=== PATIENT | female | born 1950 | race Caucasian/White ===

== ENCOUNTER → 2023-06-04 15:19 | Outpatient (BNVA) | payer MEDICARE, SELFPAY | PROVIDERS: PCP Family Medicine Adult Medicine; Visit Provider Family Medicine Adult Medicine | DX: R63.4 Abnormal weight loss (principal); E03.9 Hypothyroidism, unspecified; R42 Dizziness and giddiness | CPT/HCPCS: 80053; 84443; 85025 ==

== ENCOUNTER → 2025-04-21 08:32 | Outpatient (BNVA) | payer BC, SELFPAY | PROVIDERS: PCP Family Medicine; Visit Provider Family Medicine | DX: E03.9 Hypothyroidism, unspecified (principal) | CPT/HCPCS: 80053; 80061; 84439; 84443 ==

== ENCOUNTER 2025-06-07 13:53 | Outpatient (CLI) | payer BC, SELFPAY ==
--- NOTE | 2025-06-07 14:00 | MM_ITS ---
WS: [id number] BILATERAL 3D TOMOSYNTHESIS DIGITAL DIAGNOSTIC MAMMOGRAPHY WITH CAD CLINICAL INFORMATION: L breast mass HISTORY: 2016 breast cancer. New LEFT breast lump. COMPARISON: 2016. TECHNIQUE: Bilateral CC, MLO, and ML views. FINDINGS: The breasts are composed of heterogeneous fibroglandular density, which can limit the detection of small underlying mass lesions. Dense ovoid nodule upper outer LEFT breast deep to the palpable marker with spiculated margins measuring 1.5 cm. This has a suspicious appearance. Ultrasound described below. Numerous punctate calcifications RIGHT breast similar to previous. ULTRASOUND BREAST LEFT TECHNIQUE: Ultrasound left breast focused area of concern. CLINICAL INFORMATION: L breast mass FINDINGS: Ultrasound LEFT breast at the 3 o'clock position 5 cm from the nipple in the area of patient concern. This corresponds to the mammographic findings. Heterogeneous hypoechoic suspicious appearing mass measuring 1.6 x 1.4 x 1.5 cm with irregular margins. This is in the area of prior lumpectomy. Recommend further evaluation with ultrasound-guided biopsy. MM/MM diag BI tomosynthesis [id number] IMPRESSION: DENSITY: The breasts are heterogeneously dense, which may obscure small masses. BI-RADS: 5 - Highly suggestive of Malignancy FOLLOW UP: US Guided Biopsy Recommended Recommend ultrasound-guided biopsy of the suspicious LEFT breast mass
== END 2025-06-07 13:54 | disposition home or self-care (01) ==
LOC: RAD 13:53
PROVIDERS: PCP Family Medicine; Visit Provider Family Medicine
DX: N64.4 Mastodynia (principal); R92.322 Mammographic fibroglandular density, left breast; N63.14 Unspecified lump in the right breast, lower inner quadrant; Z98.890 Other specified postprocedural states
CPT/HCPCS: 76642; 77062; G0279

== ENCOUNTER 2025-06-09 13:42 | Outpatient (CLI) | payer MEDICARE, SELFPAY ==
--- NOTE | 2025-06-09 14:45 | US_ITS ---
WS: [id number] ULTRASOUND-GUIDED LEFT BREAST BIOPSY ULTRASOUND GUIDED BIOPSY LEFT AXILLARY LYMPH NODE. HISTORY: BI-RADS 5 mass LEFT breast at 3:00. During initial scanning of the LEFT breast mass prior to the biopsy the LEFT axilla was imaged and abnormal lymph nodes were identified. These lymph nodes will be biopsied also. COMPARISON: 06/07/2025 Procedure, risks and complications are explained to the patient. Medications are reviewed. Consent is obtained. The mass in the LEFT breast is localized with ultrasound. Hypoechoic irregular mass localizes to 3:00, 5 cm from the nipple. Skin is cleansed with ChloraPrep and anesthetized with 1% buffered lidocaine. Small dermatome is made. Under sterile conditions mass is biopsied with a 14-gauge Achieve needle. Multiple core biopsies are performed. Material placed in formalin and sent to pathology for review. No complications encountered. Breast tissue marker ([employer] ultrasound enhanced ribbon): Single. Additional biopsy of a small cluster of lymph nodes in the axilla. This is an abnormal group of lymph nodes. At least 2 lymph nodes are identified. The cortex is thickened with displacement of the fatty hilum. Following sterile technique these lymph nodes are biopsied with an 18-gauge needle. Multiple cores are performed and placed in formalin. Patient left the radiology suite with no complications. Patient is instructed to return to [facility] or call with any concerns. US/[place] [id number] IMPRESSION: 1. Uncomplicated core needle biopsy LEFT breast mass at 3:00, 5 cm from the ni pple. PATHOLOGY: Invasive ductal carcinoma, nuclear grade 2. Please see the pathology report for further details. RECOMMENDATION: Follow-up with breast surgeon and oncology. 2. Uncomplicated core biopsy LEFT axillary lymphadenopathy. PATHOLOGY: Metastatic adenocarcinoma, moderately differentiated, consistent wit h breast primary. RECOMMENDATION: Follow-up with breast surgeon and oncology.
--- NOTE | 2025-06-09 15:49 | US_ITS ---
WS: [id number] ULTRASOUND-GUIDED LEFT BREAST BIOPSY ULTRASOUND GUIDED BIOPSY LEFT AXILLARY LYMPH NODE. HISTORY: BI-RADS 5 mass LEFT breast at 3:00. During initial scanning of the LEFT breast mass prior to the biopsy the LEFT axilla was imaged and abnormal lymph nodes were identified. These lymph nodes will be biopsied also. COMPARISON: 06/07/2025 Procedure, risks and complications are explained to the patient. Medications are reviewed. Consent is obtained. The mass in the LEFT breast is localized with ultrasound. Hypoechoic irregular mass localizes to 3:00, 5 cm from the nipple. Skin is cleansed with ChloraPrep and anesthetized with 1% buffered lidocaine. Small dermatome is made. Under sterile conditions mass is biopsied with a 14-gauge Achieve needle. Multiple core biopsies are performed. Material placed in formalin and sent to pathology for review. No complications encountered. Breast tissue marker ([employer] ultrasound enhanced ribbon): Single. Additional biopsy of a small cluster of lymph nodes in the axilla. This is an abnormal group of lymph nodes. At least 2 lymph nodes are identified. The cortex is thickened with displacement of the fatty hilum. Following sterile technique these lymph nodes are biopsied with an 18-gauge needle. Multiple cores are performed and placed in formalin. Patient left the radiology suite with no complications. Patient is instructed to return to [facility] or call with any concerns. US/US bx lymph breast/ax [id number] IMPRESSION: 1. Uncomplicated core needle biopsy LEFT breast mass at 3:00, 5 cm from the ni pple. PATHOLOGY: Invasive ductal carcinoma, nuclear grade 2. Please see the pathology report for further details. RECOMMENDATION: Follow-up with breast surgeon and oncology. 2. Uncomplicated core biopsy LEFT axillary lymphadenopathy. PATHOLOGY: Metastatic adenocarcinoma, moderately differentiated, consistent wit h breast primary. RECOMMENDATION: Follow-up with breast surgeon and oncology.
[2025-06-15 06:55] LABS: Breast Profile ER,PR,HER2,Ki-6 See Report
== END 2025-06-09 13:43 | disposition home or self-care (01) ==
LOC: RAD 13:44
PROVIDERS: PCP Family Medicine; Visit Provider Family Medicine
DX: C50.812 Malignant neoplasm of overlapping sites of left female breast (principal); C79.89 Secondary malignant neoplasm of other specified sites; R92.1 Mammographic calcification found on diagnostic imaging of breast
CPT/HCPCS: 19083; 38505; 76942; 88305; 88361; 88374

== ENCOUNTER 2025-06-14 00:52 | Emergency (ER) | payer MEDICARE, SELFPAY ==
[2025-06-14 00:55] VITALS: BP 186/82; PULSE 75; RESP 14; TEMP 36.6; O2SAT 96
--- OUTSIDE RECORDS SUMMARY | 2025-06-14 01:08 | XMS_ITS | Clinical Summary ---
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 Name Role Phone Unavailable Primary Care Provider Unavailabl e Social History Tobacco Use Types Packs/Day Years Used Date Smoking Tobacco: Never Assessed Comments Unknown Sex and Gender Information Value Date Recorded Sex Assigned at Not on file Legal Sex Female 11:55 AM EDT Gender Identity Not on file Sexual Orientation Not on file Plan of Treatment Health Maintenance Due Date Last Done Comments Pneumococcal Vaccine: 50+ Ye ars (1 of 2 - PCV) 12/19/1967 Influenza Vaccine (#1) 2025 Hepatitis B Vaccine Aged Out No longe r eligible based on patient's age to complete this topic Insurance [address] [place] [id number] [place] Adv ([id number])
--- OUTSIDE RECORDS SUMMARY | 2025-06-14 01:08 | XMS_ITS | Clinical Summary ---
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 30 Tablet 0 04/09/2020 Active levothyroxine 75 mcg tablet Take 75 mcg by mouth daily. 04/27/2015 Active estradioL (ESTRACE) 1 mg tablet Take 1 mg by mouth daily. 05/06/2015 Active predniSONE (DELTASONE) 20 mg tabletIndication s:Poison ana paula Take 3 tabs daily x 3 d, then 2 tabs daily x 3 d, then 1 tab daily x 3 d, then 1/2 tab daily x 4 d. 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 Gender Identity Not on file Sexual Orientation Not on file Last Filed Vital Signs Vital Sign Reading Time Taken Comments Blood Pressure 156/81 04/09/2020 2:25 PM CDT Pulse 94 05/06/2015 4:02 PM CDT Temperature 36.6 C (97.8 F) 04/09/2020 1:40 PM CDT Respiratory Rate 20 04/09/2020 2:25 PM CDT Oxygen Saturation - - Inhaled Oxygen Concentration - - Weight 70 kg (154 lb 6.4 oz) 04/09/2020 1:40 PM CDT Height 162.6 cm (5' 4 ) 04/09/2020 1:40 PM CDT Body Mass Index 26.5 04/09/2020 1:40 PM CDT Plan of Treatment Health Maintenance Due Date Last Done Comments DTAP/TDAP/TD VACCINES (1 - Tdap) 12/19/1967 PNEUMOCOCCAL VACCINE 50+ YEARS (1 of 1 - PCV) 12/18/18 99 ZOSTER VACCINE (1 of 2) 1998 OSTEOPOROSIS SCREENING 2013 RSV VACCINE (60+ or ) (1 - 1-dose 75+ series) 12/19/2023 INFLUENZA VACCINE (#1) 2025
--- OUTSIDE RECORDS SUMMARY | 2025-06-14 01:08 | XMS_ITS | Encounter Summary ---
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 Name Role Phone Unavailable Primary Care Provider Unavailabl e Reason for Referral * Consultation (Urgent) - Closed Specialty Diagnoses / Procedures Referred By Contac t Referred To Contact Nephrology Diagnoses Acute kidney failure, not otherwise specified (HCC) Chronic kidney disease, not otherwise specified Latoya Gasca FNP [address] [place] [address] Phone: tel: fax: Jay Perez MD [address] [address] Phone: tel: fax: Referral ID Status Reason Start Date Expiration Date V isits Requested Visits Authorized [id number] Closed Consult and Treat 03/08/2025 03/08/2026 1 1 Encounter Details Date Type Department Care Team (Latest Contact Info) Description 03/08/2025 Transcribe Orders [facility] [address] [phone] Latoya Gasca FNP [address] [place] [address] Acute kidney failure, not otherwise specified (HCC) (Primary Dx); Chronic kidney disease, not otherwise specified Social History Tobacco Use Types Packs/Day Years Used Date Smoking Tobacco: Never Assessed Comments Unknown Sex and Gender Information Value Date Recorded Sex Assigned at Not on file Legal Sex Female 11:55 AM EDT Gender Identity Not on file Sexual Orientation Not on file documented as of this encounter Plan of Treatment Scheduled Referrals Name Type Priority Associated Diagnoses Order Schedule Ambulatory referral to Nephrology Outpatient Referral Routine Acute kidney failure, not otherwise specified (HCC) Chronic kidney disease, not otherwise specified Expected: 03/08/2025, Expires: 03/08/2026 documented as of this encounter Visit Diagnoses Diagnosis Acute kidney failure, not otherwise specified (HCC)- Primary Chronic kidney disease, not otherwise specified documented in this encounter
--- OUTSIDE RECORDS SUMMARY | 2025-06-14 01:08 | XMS_ITS | Clinical Summary ---
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 04/27/2015 Active estradiol (ESTRACE) 1 mg tablet Take 1 mg by mouth daily. Active predniSONE (DELTASONE) 20 mg tabletIndication s:Poison ana paula Take 3 tabs daily x 3 d, then 2 tabs daily x 3 d, then 1 tab daily x 3 d, then 1/2 tab daily x 4 d. 20 Tablet 0 05/06/2015 Active hydrOXYzine HCL (ATARAX) 25 mg tablet Take 1 Tablet (25 mg) by mouth 3 times daily as needed for Itching. 30 Tablet 04/09/2020 Active Active Problems No known active problems Family History Medical History Relation Name Comments Cancer Mother Relation Name Status Comments Mother Social History Tobacco Use Types Packs/Day Years Used Date Smoking Tobacco: Never Smokeless Tobacco: Never Alcohol Use Standard Drinks/Week Comments No 0 (1 standard drink = 0.6 oz pur e alcohol) Comments No Sex and Gender Information Value Date Recorded Sex Assigned at Not on file Legal Sex Female 3:40 PM CDT Gender Identity Not on file Sexual Orientation Not on file Last Filed Vital Signs Vital Sign Reading Time Taken Comments Blood Pressure 156/81 04/09/2020 2:25 PM CDT Pulse 94 05/06/2015 4:02 PM CDT Temperature 36.6 C (97.8 F) 04/09/2020 1:40 PM CDT Respiratory Rate 20 04/09/2020 2:25 PM CDT Oxygen Saturation 96% 04/09/2020 2:25 PM CDT Inhaled Oxygen Concentration - - Weight 70 [...] 75+ series) 12/19/2023 INFLUENZA VACCINE (#1) 2025 Insurance MEDICARE PART A AND B [facility]
--- OUTSIDE RECORDS SUMMARY | 2025-06-14 01:09 | XMS_ITS | Data Portability ---
Author Organization [facility], Formerly [facility] Address [address] [place] [address] Assessment Encounter Date Assessment Date Assessment LastModified by Organization Details LastModified Time 08/26/2024 08/26/2024 Discussed labs today but patient declined. The patient is wanting to do a parasite cleanse with ivermectin. [email or web address] Not available 08/26/2024 09:55:13 Plan of Treatment Reminders Order Date Submit Date Provider Last Modified By Organization Details Last Modified Time Details Appointments None recorded. Lab CMP, serum or plasma 2024 025 [facility], [address] [place], [address], 5 18:23:52 TSH + free T4, serum 2024 025 [facility], [address] [place], [address], 5 16:50:15 T3, free, serum or plasma 2024 025 [facility], [address] [place], [address], 5 16:50:20 CMP, serum or plasma 2024 025 [facility], [address] [place], [address], 5 16:50:17 T3, reverse, serum [address] Clinical Lab, [address], [place], [address], 5 14:14:09 C-reactive protein, quantitati ve, serum or plasma 2024 025 [facility], [address], [place], [address], 5 16:50:16 estradiol, QN, serum or plasma 2024 025 [facility], [address], [place], [address], 5 12:49:53 testostero ne, total, serum 2024 025 [facility], [address], [place], [address], 5 16:50:19 thyroid peroxidase (tpo) Ab, serum 2024 [facility], [address], [place], [address], 5 12:49:52 vitamin D, 25-hydroxy , total, serum 2024 025 [facility], [address], [place], [address], 5 16:50:13 progestero ne, serum 2024 025 [facility], [address], [place], [address], 12:49:55 Referral narrow fabric calenderer referral - CALL WITH QUESTIONS/ CONCERNS. FAX:[phone] CHEY GUILLEN/CASE MANAGEMENT [address], [address] [place] [address], [address], 14:28:10 Procedures None recorded. Surgeries None recorded. Imaging electrocar diogram [address], [address] [place], [address], 10:09:00 Medication Orders clonidine HCl 0.1 mg tablet [address] [place] [address] Not available 16:31:33 estradiol 2 mg tablet [email or web address] [place] [address] Pharmacy [facility], [address] [place] [address], [address], 15:29:06 mupirocin 2 % topical ointment 2024 [facility], [address] [place] [address], [address], 08:59:18 ivermectin 3 mg tablet 2024 025 [email or web address] [facility], [address] [place] [address], [address], 5 15:31:07 levofloxac in 500 mg tablet 2024 025 [facility], [address] [place] [address], [address], 5 15:32:51 prednisone 20 mg tablet 2024 025 [facility], [address] [place] [address] [place], [address], 16:12:44 Patient TargetsNo targets recorded. 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 FAX:[phone] CHEY GUILLEN/CASE MANAGEMENT Referring Physician: Montana Gunter, Family Medicine, Encounter Date: 11/18/2024 Results Created Date Observation Date Name Description Value Unit Range Abnormal Flag Note LastModifiedBy Organization Detail LastModifiedTime 03/03/2003/04/2025 VITAM IN D TOTAL vitamin D total 43.9 NG/mL 14.7 - 68.3 Not Available [facility] Lab [address] [place], [address], 03/04/2025 16:50:13 03/03/2003/04/2025 TSH free T4 0.86 NG/mL 0.78 - 2.19 Not Available [facility] [address] [place], [address], 03/04/2025 16:50:15 03/03/2003/04/2025 TSH TSH 28.300 mIU/L 0.465 - 4.680 high Not Available [facility] [address] [place], [address], 03/04/2025 16:50:15 03/03/2003/0403/04/2025 CRP CRP 5.0 mg/L 0.0 - 10.0 Not Available [facility] [address] [place], [address], 03/04/2025 16:50:16 03/03/20 25 03/04/2025 COMPR EHENS SOLANGE METAB OLIC PANEL (CMP) albumin 4.2 g/dL 3.5 - 5.0 Not Available [facility] [address] [place], [address], 03/04/2025 16:54:17 03/03/2003/04/2025 COMPR EHENS SOLANGE METAB OLIC PANEL (CMP) chloride 104 mmol/ L 98 - 107 Not Available [facility] [address] [place], [address], 03/04/2025 16:54:17 03/03/20 25 03/04/2025 COMPR EHENS SOLANGE METAB OLIC PANEL (CMP) creatinine 2.41 mg/dL 0.52 - 1.04 high Not Available [facility] Lab [address] [place], [address], 03/04/2025 16:54:17 03/03/20 25 03/04/2025 COMPR EHENS SOLANGE METAB OLIC PANEL (CMP) eco2 27.0 mmol/ L 22.0 - 30.0 Not Available [facility] [address] [place], [address], 03/04/2025 16:54:17 03/03/2003/04/2025 COMPR EHENS SOLANGE METAB OLIC PANEL (CMP) glucose 91 mg/dL 74 - 106 Not Available [facility] [address] [place], [address], 03/04/2025 16:54:17 07/16/03/04/2025 COMPR EHENS SOLANGE METAB OLIC PANEL (CMP) potassium 4.00 mmol/ L 3.50 - 5.10 Not Available [facility] [address] [place], [address], 03/04/2025 16:54:17 03/03/20 25 03/04/2025 COMPR EHENS SOLANGE METAB OLIC PANEL (CMP) alkaline phos 81 U/L 38 - 126 Not Available [facility] [address] [place], [address], 03/04/2025 16:54:17 03/03/20 25 03/04/2025 COMPR EHENS SOLANGE METAB OLIC PANEL (CMP) sodium 132 mmol/ L 137 - 145 low Not Available [facility] [address] [place], [address], 03/04/2025 16:54:17 03/03/20 25 03/04/2025 COMPR EHENS SOLANGE METAB OLIC PANEL (CMP) total bilirubin 0.5 mg/dL 0.2 - 1.3 Not Available [facility] [address] [place], [address], 03/04/2025 16:54:17 03/03/20 25 03/04/2025 COMPR EHENS SOLANGE METAB OLIC PANEL (CMP) total protein 6.7 g/dL 6.3 - 8.2 Not Available [facility] [address] [place], [address], 03/04/2025 16:54:17 03/03/20 25 03/04/2025 COMPR EHENS SOLANGE METAB OLIC PANEL (CMP) ALT 24 U/L 0 - 35 Not Available [facility] [address] [place], [address], 03/04/2025 16:54:17 03/03/20 25 03/04/2025 COMPR EHENS SOLANGE METAB OLIC PANEL (CMP) BUN/urea 18 mg/dL 7 - 17 high Not Available [facility] [address] [place], [address], 03/04/2025 16:54:17 03/03/20 25 03/04/2025 COMPR EHENS SOLANGE METAB OLIC PANEL (CMP) eGFR 20 mL/mi n/1.7 3m2 >60 critical low CRITI TIMMY NOTE: Anyi dunn to Ursula Murillo ng @ 15:32 , . mge *eGFR Refer ence Value s Katina l: >60 mL/mi n/1.7 3m2 Abnor mal: < 60 mL/mi n/1.7 3m2 Not Available [facility] [address] [place], [address], 03/04/2025 16:54:17 03/03/20 25 03/04/2025 COMPR EHENS SOLANGE METAB OLIC PANEL (CMP) A/G ratio 1.6 (calc ) 1.0 - 2.5 Not Available [facility] [address] [place], [address], 03/04/2025 16:54:17 03/03/20 25 03/04/2025 COMPR EHENS SOLANGE METAB OLIC PANEL (CMP) globulin 2.6 g/dL_ (calc ) 1.9 - 3.7 Not Available [facility] [address] [place], [address], 03/04/2025 16:54:17 03/03/20 25 03/04/2025 COMPR EHENS SOLANGE METAB OLIC PANEL (CMP) calcium 9.5 mg/dL 8.4 - 10.2 Not Available [facility] [address] [place], [address], 03/04/2025 16:54:17 03/03/20 25 03/04/2025 COMPR EHENS SOLANGE METAB OLIC PANEL (CMP) AST 25 U/L 14 - 36 Not Available [facility] [address] [place], [address], 03/04/2025 16:54:17 03/03/20 25 03/04/2025 COMPR EHENS SOLANGE METAB OLIC PANEL (CMP) BUN/crea ratio 8 (calc ) 6 - 22 Not Available [facility] [address] [place], [address], 03/04/2025 16:54:17 03/03/20 25 03/04/2025 TESTO STERO NE testosterone 25 NG/dL 6 - 77 Not Available [facility] Lab [address] [place], [address], 03/04/2025 16:50:19 03/03/2003/04/2025 FREE T3 free T3 2.80 pg/L 2.77 - 5.27 Not Available [facility] [address] [place], [address], 03/04/2025 16:50:20 03/03/20 25 03/09/2025 THYRO ID PEROX IDASE ANTIB ELE thyroid peroxidase antibody 22 IU/mL <9-34 An eleva shaun Thyro id Perox idase Antib ele shoul d not be used alone to make the diagn osis of autoi mmune thyro id disea se. A resul t of <34 IU/mL does not defin itive ly rule out the possi bilit y of autoi mmune thyro id disea se. Not Available [facility] [address] [place], [address], 03/09/2025 12:49:52 03/03/20 25 03/09/2025 ESTRA DIOL estradiol 16 pg/mL Estra diol Refer ence Range Healt hy women Folli cular phase 12.4 - 233 Ovula tion phase 41.0 - 398 Lutea l phase 22.3 - 341 Postm enopa use <5 - 138 Healt hy pregn ant women 1st trime ster 154 - 3243 2nd trime ster 1561 - 26414 3rd trime ster 8525 - >3000 0 Not Available [facility] [address] [place], [address], 03/09/2025 12:49:53 03/03/20 25 03/09/2025 PROGE STERO NE progesterone 0.19 NG/mL Proge stero ne Refer ence Range Healt hy women Folli cular phase 0.057 - 0.893 Ovula tion phase 0.121 - 12.0 Lutea l phase 1.83 - 23.9 Postm enopa use <0.05 - 0.126 Healt hy pregn ant women 1st trime ster 11.0 - 44.3 2nd trime ster 25.4 - 83.3 3rd trime ster 58.7 - 214 Not Available [facility] [address] [place], [address], 03/09/2025 12:49:55 03/03/2003/09/2025 TRIIO PAUL FARIA SE - LC-MS /MS triiodothyro nine, reverse - lc-MS/MS 9 NG/dL 8-25 Test devel oped and its sam tical perfo rmanc e ezekiel cteri stics have been deter mined by [facility]. selene s [facility] [place]. It has not been clear ed or appro janice by the U.S. Food and Drug Admin istra tion. This assay has been valid ated pursu ant to the CLIA regul ation s and is used for clini timmy purpo ses. Test Perfo rmed By Veronika yung , CLIA [id number] [facility] [address] [facility] ,[place], [place], Jennifer Rocha MD PhD Not Available [facility] [address] [place], [address], 03/09/2025 12:49:56 03/08/20 25 03/08/2025 COMPR EHENS SOLANGE METAB OLIC PANEL (CMP) albumin 4.5 g/dL 3.5 - 5.0 Not Available [facility] [address] [place], [address], 03/08/2025 18:23:52 03/08/20 25 03/08/2025 COMPR EHENS SOLANGE METAB OLIC PANEL (CMP) chloride 104 mmol/ L 98 - 107 Not Available [facility] [address] [place], [address], 03/08/2025 18:23:52 03/08/20 25 03/08/2025 COMPR EHENS SOLANGE METAB OLIC PANEL (CMP) creatinine 0.91 mg/dL 0.52 - 1.04 Not Available [facility] [address] [place], [address], 03/08/2025 18:23:52 03/08/20 25 03/08/2025 COMPR EHENS SOLANGE METAB OLIC PANEL (CMP) eco2 27.0 mmol/ L 22.0 - 30.0 Not Available [facility] [address] [place], [address], 03/08/2025 18:23:52 03/08/20 25 03/08/2025 COMPR EHENS SOLANGE METAB OLIC PANEL (CMP) glucose 89 mg/dL 74 - 106 Not Available [facility] [address] [place], [address], 03/08/2025 18:23:52 03/08/20 25 03/08/2025 COMPR EHENS SOLANGE METAB OLIC PANEL (CMP) potassium 4.90 mmol/ L 3.50 - 5.10 Not Available [facility] [address] [place], [address], 03/08/2025 18:23:52 03/08/20 25 03/08/2025 COMPR EHENS SOLANGE METAB OLIC PANEL (CMP) alkaline phos 89 U/L 38 - 126 Not Available [facility] [address] [place], [address], 03/08/2025 18:23:52 03/08/20 25 03/08/2025 COMPR EHENS SOLANGE METAB OLIC PANEL (CMP) sodium 135 mmol/ L 137 - 145 low Not Available [facility] [address] [place], [address], 03/08/2025 18:23:52 03/08/20 25 03/08/2025 COMPR EHENS SOLANGE METAB OLIC PANEL (CMP) total bilirubin 0.6 mg/dL 0.2 - 1.3 Not Available [facility] [address] [place], [address], 03/08/2025 18:23:52 03/08/20 25 03/08/2025 COMPR EHENS SOLANGE METAB OLIC PANEL (CMP) total protein 7.1 g/dL 6.3 - 8.2 Not Available [facility] [address] [place], [address], 03/08/2025 18:23:52 03/08/20 25 03/08/2025 COMPR EHENS SOLANGE METAB OLIC PANEL (CMP) ALT 29 U/L 0 - 35 Not Available [facility] [address] [place], [address], 03/08/2025 18:23:52 03/08/20 25 03/08/2025 COMPR EHENS SOLANGE METAB OLIC PANEL (CMP) BUN/urea 24 mg/dL 7 - 17 high Not Available [facility] [address] [place], [address], 03/08/2025 18:23:52 03/08/20 25 03/08/2025 COMPR EHENS SOLANGE METAB OLIC PANEL (CMP) eGFR 65 mL/mi n/1.7 3m2 >60 *eGFR Refer ence Value s Katina l: >60 mL/mi n/1.7 3m2 Abnor mal: < 60 mL/mi n/1.7 3m2 Not Available [facility] [address] [place], [address], 03/08/2025 18:23:52 03/08/20 25 03/08/2025 COMPR EHENS SOLANGE METAB OLIC PANEL (CMP) A/G ratio 1.7 (calc ) 1.0 - 2.5 Not Available [facility] [address] [place], [address], 03/08/2025 18:23:52 03/08/20 25 03/08/2025 COMPR EHENS SOLANGE METAB OLIC PANEL (CMP) globulin 2.6 g/dL_ (calc ) 1.9 - 3.7 Not Available [facility] [address] [place], [address], 03/08/2025 18:23:52 03/08/20 25 03/08/2025 COMPR EHENS SOLANGE METAB OLIC PANEL (CMP) calcium 10.2 mg/dL 8.4 - 10.2 Not Available [facility] [address] [place], [address], 03/08/2025 18:23:52 03/08/20 25 03/08/2025 COMPR EHENS SOLANGE METAB OLIC PANEL (CMP) AST 29 U/L 14 - 36 Not Available [facility] [address] [place], [address], 03/08/2025 18:23:52 03/08/20 25 03/08/2025 COMPR EHENS SOLANGE METAB OLIC PANEL (CMP) BUN/crea ratio 26 (calc ) 6 - 22 high Not Available [facility] [address] [place], [address], 03/08/2025 18:23:52 05/31/20 elect rocar diogr am No observ ation record ed. [email or web address] [facility] [address] [place], [address], 05/31/2025 10:08:52 05/31/2005/31/2025 elect rocar diogr am No observ ation record ed. BARCODE [facility] [address] [place], [address], 05/31/2025 15:41:28 Result Notes None recorded. Problems Name Problem SNOMED Code Status Onset Date Resolution Date Notes Provider Name and Address Organization Details Recorded Time Herpes zoster 6092147 Completed 201410/03/2016 Created By: BRITTNEE RUCKER; Modified By: EDGAR OCTOBER; Category : DD; Examiner : Brittnee Rucker; Medicine Descript ion: HERPES ZOSTER INVOLVIN G CERVICAL DERMATOM E; Display in Medcin: NO; Display in ESB: NO; Confiden tiality Level: Level 1; Type: Lion RUCKER, TACOS [address], [address] , [facility] 7 15:30:19 Streptoc occal sore throat 87635396 Completed 201410/03/2016 Created By: BRITTNEE RUCKER; Modified By: STARLA CLAROS; Category : DD; Examiner : Brittnee Rucker; Medicine Descript ion: PHARYNGI TIS STREPTOC OCCUS, GROUP A: BETA HEMOLYTI C; Display in Medcin: NO; Display in ESB: YES; Confiden tiality Level: Level 1; Type: Lion RUCKER LOGGING SUPERVISOR [address], [address] , [facility] 7 15:30:14 Contact dermatit is due to plants, except food Completed 201410/03/2016 Created By: BRITTNEE RUCKER; Modified By: EDGAR OCTOBER; Category : DD; Examiner : Brittnee Rucker; Medicine Descript ion: CONTACT DERMATIT IS DUE TO PLANTS; Display in Medcin: NO; Display in ESB: NO; Confiden tiality Level: Level 1; Type: Diagnosi s BRITTNEE RUCKER NP [address], [address] , [facility] 7 15:30:31 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 Created By: BRITTNEE RUCKER; Modified By: EDGAR OCTOBER; Category : DD; Examiner : Brittnee Rucker; Medicine Descript ion: HYPOTHYR OIDISM; Display in Medcin: NO; Display in ESB: NO; Confiden tiality Level: Level 1; Type: Diagnosi s Not Available Counts include 234 beds at the [facility] 6 04:47:25 Diarrhea [id number] Completed 201410/03/2016 Created By: BRITTNEE RUCKER; Modified By: STARLA CLAROS; Category : DD; Examiner : Brittnee Rucker; Medicine Descript ion: diarrhea ; Display in Medcin: NO; Display in ESB: YES; Confiden tiality Level: Level 1; Type: Diagnosi s BRITTNEE RUCKER NP [address], [address] , [facility] 7 15:30:27 Elevated blood-pr essure reading without diagnosi s of hyperten adelaida 884706423 Completed 201411/09/2020 Created By: BRITTNEE RUCKER; Modified By: BRITTNEE RUCKER; Category : DD; Examiner : Brittnee Rucker; Medicine Descript ion: Blood Pressure Isolated Elevated ; Display in Medcin: YES; Display in ESB: YES; Confiden tiality Level: Level 1; Type: Diagnosi s BRITTNEE RUCKER NP [address], [address] , [facility] 1 14:46:04 Superfic ial foreign body 954923115 Completed 201510/03/2016 Created By: BRITTNEE RUCKER; Modified By: BRENDAN HAIR; Category : DD; Examiner : Brittnee Rucker; Medicine Descript ion: SUPERFIC IAL FOREIGN BODY EAR; Display in Medcin: YES; Display in ESB: YES; Confiden tiality Level: Level 1; Type: Lion s BRITTNEE RUCKER NP [address], [address] , [facility] 7 15:30:16 Impacted cerumen 54081026 Completed 201510/03/2016 Created By: BRITTNEE RUCKER; Modified By: BRITTNEE RUCKER; Category : DD; Examiner : Brittnee Rucker; Medicine Descript ion: CERUMEN IMPACTIO N; Display in Medcin: YES; Display in ESB: YES; Confiden tiality Level: Level 1; Type: Ulicessanti s BRITTNEE RUCKER NP [address], [address] [place] [address] , [facility] 7 15:30:37 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 053694005 Completed 201610/03/2016 MAICOL IRENE NP [address], [address] [place] [address] , [facility] 2 11:29:47 Hyperlip idemia 50043412 Active 2016 BRITTNEE RUCKER NP [address], [address] [place] [address] , [facility] 7 11:57:32 Menopaus al flushing 385381144 Completed 201705/05/2019 Sagrario Martinez LPN [facility], [facility] 9 10:58:37 History of multiple allergie s 926998672 Active 2018 BRITTNEE RUCKER NP [address], [address] , [facility] 9 11:32:04 Allergic reaction 761525950 Completed 201909/02/2020 [facility] 1 11:29:13 [facility] hyperten adelaida 32835972 Active 2020 BRITTNEE RUCKER NP [address], [address] , [facility] 1 14:45:59 Malignan t melanoma 941300691 Active 2021 Mole on leg 03/06/22 BRITTNEE RUCKER NP [address], [address] , [facility] 2 11:13:50 Problem Notes None recorded. Procedures Surgical History Date Name Laterality Status Provider Name and Address Organization Details Recorded Time 10/24/19 22 venipuncture completed Anahy Cosme [facility] 10/23/2021 10:26:42 04/25/20 21 venipuncture completed [place] Marsh [facility] 04/25/2021 11:06:49 09/02/19 21 venipuncture completed [facility] 09/02/2020 11:26:58 08/03/20 20 venipuncture completed Jena [facility] 08/03/2020 10:38:05 02/01/20 20 venipuncture completed Lisa Medrano [facility] 01/29/2020 08:47:39 10/26/19 20 venipuncture completed Elliotttheathere Aries [facility] 10/26/2019 15:22:49 09/01/19 19 venipuncture completed Sandra Bowen [facility] 09/01/2018 13:12:56 02/12/20 18 venipuncture completed Elliottalvarezterry CarmenAries [facility] 02/11/2018 09:41:09 12/10/19 18 venipuncture completed [facility] 12/09/2017 09:31:42 08/15/20 17 venipuncture completed Sagrario Martinez LPN [facility] 08/15/2017 10:42:39 02/12/20 17 venipuncture completed Sagrario Martinez LPN [facility] 02/11/2017 10:48:08 Tonsillectomy completed [facility] 10/03/2016 09:36:37 Hysterectomy completed [facility] 10/03/2016 09:36:42 Appendectomy completed [facility] 10/03/2016 09:36:48 Imaging Results None recorded. Procedure Notes None recorded. Medical Equipment None Reported. Allergies Allergen ID Allergen Name Allergen Category Reaction Reaction Severity Criticality Documentation Date Start Date Code Code System Note Provider Name and Address Organization Details Recorded Time 98884 Product containin g penicilli n (product) medicatio n rash Not available Not available 07/22/20162014 49880 8001 SNOMED React ion: Rash, Urtic aria (hive s); Comme nt: Last Edite d: 07-29 10:32 :44; Not Available [facility] 6 03:39:27 36260 clindamyc in Not available diarrhea rash severe severe Not available 10/03/2016 2582 RxNorm BRITTNEE RUCKER NP [address], [address] [place] [address] 7 10:01:20 45187 doxycycli ne Not available Not available Not available Not available 04/23/2024 3640 RxNorm Annie [facility] 4 12:15:11 01725 ampicilli n medicatio n hives Not available Not available 05/31/2025 733 RxNorm Prasanna IRBY PNP-PC, CORPORATE LEGAL SECRETARY-C, [facility] [address], [address], [place] [facility] 09:29:06 64795 penicilli n V Not available Not available Not available Not available 06/09/2025 7984 RxNorm Not Available ariela - External Data Service - prod 16:49:28 Medications Name Sig Start Date Stop Date Status Note LastModified by Organization Details LastModified Time ivermectin 3 mg tablet Take 9 tablets every day by oral route for 5 days. 11/18 completed Not Available Not Available Not Available promethazin e-DM 6.25 mg-15 mg/5 mL oral syrup TAKE 5 ML BY MOUTH EVERY 4 HOURS NEEDED 04/15 completed Not Available Not Available Not Available clonidine HCl 0.1 mg tablet Take 1 tablet by oral route. 2024 active Not Available Not Available Not Avai lable prednisone 10 mg tablet TAKE 4 TABLETS BY MOUTH ONCE DAILY FOR 3 DAYS THEN TAKE 3 TABS ONCE DAILY FOR 3 DAYS THEN 2 TABS ONCE DAILY FOR 3 DAYS THEN 1 TAB ONCE DAILY FOR 3 DAYS THEN 1/2 (ONE-HALF ) TAB ONCE DAILY FOR 3 DAYS THEN STOP 10/28 completed Not Available Not Available Not Available doxycycline hyclate 100 mg capsule Take 1 capsule twice a day by oral route for 10 days. 04/23 completed Not Available Not Available Not Available albuterol sulfate 2.5 mg/3 mL (0.083 %) solution for nebulizatio n Inhale 3 mL every 4-6 hours by nebulizat ion route as needed. 04/15 completed Not Available Not Available Not Available azithromyci n 250 mg tablet TAKE 2 TABLETS BY MOUTH ON DAY 1, AND THEN TAKE 1 TABLET BY MOUTH ONCE A DAY ON DAY 2 THROUGH DAY 5 11/18 completed Not Available Not Available Not Available hydrocodone 5 mg-acetamin ophen 325 mg tablet 02/11 completed Not Available Not Available Not Available ondansetron HCl 8 mg tablet 02/11 completed Not Available Not Available Not Available lisinopril 20 mg tablet TAKE 1 TABLET BY MOUTH ONCE DAILY 03/03 completed Not Available Not Available Not Available ondansetron HCl 4 mg tablet 02/11 completed Not Available Not Available Not Available prednisone 20 mg tablet TAKE 1 TABLET BY MOUTH ONCE DAILY FOR 5 DAYS 11/18 completed Not Available Not Available Not Available phentermine 15 mg capsule TAKE 1 CAPSULE BY MOUTH EVERY OTHER DAY. MUST ADMINISTE R 2 HOURS AFTER BREAKFAST . 09/02 completed Not Available Not Available Not Available clindamycin HCl 150 mg capsule 02/11 completed Not Available Not Available Not Available sulfamethox azole 800 mg-trimetho prim 160 mg tablet Take 1 tablet every 12 hours by oral route for 7 days. 08/26 completed Not Available Not Available Not Available triamcinolo ne acetonide 0.1 % topical cream APPLY A THIN LAYER TO THE AFFECTED AREA(S) BY TOPICAL ROUTE 2 TIMES PER DAY 09/01 completed Not Available Not Available Not Available Lipitor 20 mg tablet Take 1 tablet every day by oral route. 08/16 completed Not Available Not Available Not Available Depo-Medrol 80 mg/mL suspension for injection Take 80 mg by injection route. 04/11 completed Not Available Not Available Not Available levothyroxi ne 88 mcg tablet Take 1 tablet by mouth once daily 2024 active Not Available Not Available Not Avai lable estradiol 1 mg tablet Take 1 tablet every day by oral route as directed. 08/20 completed Not Available Not Available Not Available Lipitor 40 mg tablet Take 1 tablet every day by oral route. 08/16 completed Not Available Not Available Not Available Euthyrox 75 mcg tablet TAKE 1 TABLET BY MOUTH ONCE DAILY FOR 90 DAYS 08/03 completed Not Available Not Available Not Available meclizine 25 mg tablet Take 1 tablet 3 times a day by oral route. 04/11 completed Not Available Not Available Not Available diazepam 2 mg tablet TAKE 1-2 TABLETS BY MOUTH ONE HOUR PRIOR TO DENTAL VISIT 10/23 completed Not Available Not Available Not Available betamethaso ne dipropionat e 0.05 % topical cream 02/11 completed Not Available Not Available Not Available cranberry fruit 400 mg capsule OTC 01/31 completed Not Available Not Available Not Available estradiol 2 mg tablet Take 1 tablet every day by oral route. 2024 active Not Available Not Available Not Avai lable hydroxyzine HCl 25 mg tablet TAKE 1 TABLET BY MOUTH THREE TIMES DAILY NEEDED FOR ITCHING 08/03 completed Not Available Not Available Not Available mupirocin 2 % topical ointment APPLY A SMALL AMOUNT TO THE AFFECTED AREA BY TOPICAL ROUTE 3 TIMES PER DAY 2024 active Not Available Not Available Not Avai lable estradiol 0.5 mg tablet TAKE 1 2 (ONE HALF) TABLET BY MOUTH ONCE DAILY. 08/03 completed Not Available Not Available Not Available levalbutero l 1.25 mg/3 mL solution for nebulizatio n USE 1 VIAL IN NEBULIZER EVERY 6 HOURS NEEDED 04/15 completed Not Available Not Available Not Available dexamethaso ne sodium phosphate 4 mg/mL injection solution Inject 4 mg by injection route. 04/11 completed Not Available Not Available Not Available levofloxaci n 500 mg tablet TAKE 1 TABLET BY MOUTH EVERY 24 HOURS FOR 10 DAYS 11/18 completed Not Available Not Available Not Available methylpredn isolone 4 mg tablets in a dose pack TAPER 6 1 DIRECTED 03/12 completed Not Available Not Available Not Available betamethaso ne dipropionat e 0.05 % topical ointment APPLY A THIN LAYER TO THE AFFECTED AREA(S) BY TOPICAL ROUTE ONCE DAILY 08/03 completed Not Available Not Available Not Available hydroxyzine HCl 10 mg tablet TAKE 1 TABLET BY MOUTH EVERY 6 HOURS NEEDED FOR ITCHING 04/11 completed Not Available Not Available Not Available lisinopril 2.5 mg tablet TAKE 1 TABLET BY MOUTH ONCE DAILY 08/20 completed Not Available Not Available Not Available doxycycline hyclate 100 mg tablet TAKE 1 TABLET BY MOUTH TWICE DAILY FOR 7 DAYS 03/12 completed Not Available Not Available Not Available loratadine 10 mg tablet TAKE 1 TABLET BY MOUTH ONCE DAILY 04/15 completed Not Available Not Available Not Available neomycin-po lymyxin-hyd rocort 3.5 mg-10,000 unit/mL-1 % ear drops,susp 02/11 completed Not Available Not Available Not Available omega-3 acid ethyl esters 1 gram capsule TAKE TWO CAPSULES BY MOUTH TWICE DAILY 08/07 completed Not Available Not Available Not Available fenofibrate 160 mg tablet Take 1 tablet every day by oral route. 12/09 completed Not Available Not Available Not Available Vitamin C OTC by oral route one time a day. 03/12 completed Not Available Not Available Not Available estradiol 0.01 mcg tablet. Take by oral route one time a day. 02/11 completed Not Available Not Available Not Available garlic OTC by oral route one time a day. 03/12 completed Not Available Not Available Not Available B Complex-Vit cain B12 by oral route one time a day. 08/07 completed Not Available Not Available Not Available calcium-vit cain D-vitamin K OTC one time a day by oral route. 03/12 completed Not Available Not Available Not Available multivitami n OTC 10/28 completed Not Available Not Available Not Available Solu-Medrol (PF) 125 mg/2 mL solution for injection Take 125 mg by injection route. 09/01 completed [id number] Not Available Not Available Not Available levothyroxi ne 75 mcg capsule Take 1 capsule every day by oral route. 02/11 completed Not Available Not Available Not Available EpiPen 2-Loc 0.3 mg/0.3 mL injection, auto-inject or as needed for anaphylax is 08/07 completed Not Available Not Available Not Available Vascepa 1 gram capsule Take 2 capsules twice a day by oral route. 09/01 completed Not Available Not Available Not Available Vitals Date Recorded Body height Body mass index (BMI) Body weight Body temperature Heart rate Oxygen saturation Oxygen saturation in Arterial blood by Pulse oximetry Respiratory rate Systolic And Diastolic Provider Name and Address Organization Details Last Updated DateTime 5 162.56 cm 24.8 kg/m2 78471.0 5 g 98.5 [degF] 87 /min 97 % 97 % 18 /min 150/88 mm[Hg] Lovely RODGERS - [facility] 5 09:37:16 Date Recorded Body height Body mass index (BMI) Body weight Body temperature Heart rate Oxygen saturation Oxygen saturation in Arterial blood by Pulse oximetry Respiratory rate Systolic And Diastolic Provider Name and Address Organization Details Last Updated DateTime 5 162.56 cm 25.6 kg/m2 78676.0 1 g 98.2 [degF] 96 /min 97 % 97 % 18 /min 148/88 mm[Hg] Lovely Mena [facility] 5 15:33:37 Date Recorded Body height Body mass index (BMI) Body weight Body temperature Respiratory rate Oxygen saturation Oxygen saturation in Arterial blood by Pulse oximetry Heart rate Systolic And Diastolic Provider Name and Address Organization Details Last Updated DateTime 5 162.56 cm 26.5 kg/m2 98763.3 g 98.7 [degF] 20 /min 98 % 98 % 83 /min 162/90 mm[Hg] Ene Ku [facility] 5 14:22:51 Date Recorded Body height Body mass index (BMI) Body weight Body temperature Heart rate Oxygen saturation Oxygen saturation in Arterial blood by Pulse oximetry Respiratory rate Systolic And Diastolic Systolic And Diastolic Provider Name and Address Organization Details Last Updated DateTime 5 162.56 cm 25.7 kg/m2 27433.4 1 g 97.4 [degF] 85 /min 98 % 98 % 18 /min 192/96 mm[Hg] 204/106 mm[Hg] Prasanna IRBY PNP-PC, CORPORATE LEGAL SECRETARY-C, [facility] [address], [address] [place] [address] 5 10:16:44 Social History Question Answer Notes LastModified by Organization Details LastModified Time Tobacco Smoking Status Never Smoker Lorraine Clark [facility] 10/03/2016 09:34:15 Do You Have An Advance Directive? No Information not available 02/11/2017 Do You Wear A Helmet When Biking? Yes Information not available 03/12/2022 Are You Blind Or Do You Have Difficulty Seeing? No Information not available 02/11/2017 What Is Your Level Of Caffeine Consumption? Occasional [email or web address] Information not available 10/03/2016 How Much Tobacco Do You Chew? None Information not available 02/11/2017 Commercial Sex Work No Information not available 02/11/2017 In The 14 Days Before Symptom Onset, Have You Had Close Contact With A Laboratory-confi rmed COVID-19 While That Case Was Ill? No Information not available 10/26/2019 In The 14 Days Before Symptom Onset, Have You Had Close Contact With A Person Who Is Under Investigation For COVID-19 While That Person Was Ill? No Information not available 10/26/2019 Have You Been To An Area Known To Be High Risk For COVID-19? No Information not available 10/26/2019 Are You Deaf Or Do You Have Serious Difficulty Hearing? Yes Stapeotomy Bilateral Ears Information not available 02/11/2017 What Type Of Diet Are You Following? VEGETARIAN Information not available 02/11/2017 Which Illicit Or Recreational Drugs Have You Used? None Information not available 02/11/2017 Have You Processed Blood Or Body Fluids From An Ebola Virus Disease Patient Without Appropriate PPE? No Information not available 03/12/2022 Education 8 [email or web address] Information not available 10/03/2016 What Is The Highest Grade Or Level Of School You Have Completed Or The Highest Degree You Have Received? [id number] Information not available 03/12/2022 Are There Any Guns Present In Your Home? No Information not available 02/11/2017 Hard Of Hearing Or Deaf In One Or Both Ears? Yes Information not available 02/11/2017 High Number Of Sexual Partners No Information not available 02/11/2017 History Of Inconsistent/no Condom Use No Information not available 02/11/2017 Single Or Multi-level Home/work? Multi Level Home Information not available 02/11/2017 How Many Years Have You Used Illicit Or Recreational Drugs? 0 Information not available 03/16/2020 International Travel None Information not available 02/11/2017 Legally Blind In One Or Both Eyes? No Information not available 02/11/2017 Live Alone Or With Others? With Others Information not available 02/11/2017 In The Past 6 Months Have You Fallen No Information not available 02/11/2017 Medication List Reconciled Yes Information not available 05/05/2019 What Number (0-10) Best Describes How, During The Past Week, Has Interfered With Your General Activity? 0 Information not available 02/11/2017 What Number (0-10) Best Describes How, During The Past Week, Pain Has Interfered With Your Enjoyment In The Past Week 0 Information not available 02/11/2017 What Number (0-10) Best Describes Your Pain On Average In The Past Week 0 Information not available 02/11/2017 Total PEG Score 0 Informati on not available 02/11/2017 Most Recent Dental Visit 08/09/2021 Information not available 03/12/2022 Sexual Orientation Straight Or Heterosexual Information not available 02/11/2018 Gender Identity Female Informati on not available 02/11/2018 Eye Exam 12/17/2017 Information not available 02/11/2018 Do You Feel Safe Yes Informa tion not available 11/09/2020 Marital Status [email or web address] Informatio n not available 10/03/2016 What Was The Date Of Your Most Recent Tobacco Screening? 03/03/2025 [email or web address] Information not available 03/03/2025 Mother With HIV? No Informat ion not available 02/11/2017 What Is Your Relationship Status? Information not available 02/11/2017 Do You Use Your Seat Belt Or Car Seat Routinely? Yes Information not available 10/23/2021 Seat Belts Used Routinely Yes Information not available 02/11/2017 Are You Sexually Active? Yes Information not available 08/07/2019 Sexual Partner Has HIV? No Information not available 02/11/2017 Sexual Partner Uses IV Drugs? No Information not available 02/11/2017 Smoke Alarm In Home Yes Information not available 02/11/2017 How Much Tobacco Do You Smoke? No [email or web address] Information not available 10/03/2016 General Stress Level Low [email or web address] Information not available 10/03/2016 Do You Use Sunscreen Routinely? Yes Information not available 02/11/2017 How Many Years Have You Smoked Tobacco? 0 Information not available 08/03/2020 Have You Used IV Drugs? No Information not available 02/11/2017 Do You Have Difficulty Walking Or Climbing Stairs? No Information not available 02/11/2017 Sex: Female Functional Status Question Answer Note LastModified by Organizat ion Details LastModified Time Do you or have you ever used smokeless tobacco? Never used smokeless tobacco Information not available 05/05/2019 Are you currently employed? No Information not available 02/11/2017 Do you have transportation difficulties? No Information not available 02/11/2017 Are you able to care for yourself independently? Yes Information not available 02/11/2017 Do you have difficulty dressing, bathing, grooming, or toileting? No Information not available 02/11/2017 Do you or have you ever used e-cigarettes or vape? Never used electronic cigarettes Information not available 05/05/2019 What is your exercise level? Moderate [email or web address] Information not available 10/03/2016 Do you use any illicit or recreational drugs? No Information not available 10/23/2021 Do you or have you ever used any other forms of tobacco or nicotine? No Information not available 10/23/2021 What is your level of alcohol consumption? None [email or web address] Information not available 10/03/2016 Are you able to walk independently without assistance or assistive devices? [email or web address] Information not available 02/11/2017 Do you have difficulty doing errands alone? No Information not available 02/11/2017 What is your occupation? retired Information not available 10/03/2016 Mental Status Question Answer Note LastModified by Organizat ion Details LastModified Time Do you feel stressed (tense, restless, nervous, or anxious, or unable to sleep at night)? [id number] Information not available 03/12/2022 Do you have difficulty concentrating, remembering or making decisions? No Information no t available 02/11/2017 Family History Relationship Description Onset Age of this Age Resolved Age Notes LastModified by Organization Details LastModified Time Mother Malignant neoplasm of ovary [email or web address] Not available 2016 09:33:58 Medical History Condition Response Gout N Kidney Stones N Blood Diseases N Hyperthyroidism N Blood Transfusion N Depression N COPD N Incontinence N Edema N Endocrine Disorders Y Anxiety Disorder N Muscle, Joint, or Bone Problems N Obesity N Vision or Eye Problems N Arthritis N Auditory Hallucinations N Infertility N Cancer N Stroke N Varicosities N Fibromyalgia N Headaches N Kidney Disease N Abnormal Bleeding N Reproductive System Problems N Ear or Hearing Problems N Hospitalizations Y Learning Disorder N Skin Problems N Eating Disorder N MRSA exposure N Urinary Problems N Constipation N Brain Injury N Visual Hallucinations N AIDS/HIV N Tuberculosis N Back Problems N Asthma N GERD/Reflux N Hepatitis N Pulmonary Embolism N Chronic Ear Infections N Chicken Pox N Autism Spectrum Disorder (ASD) N Thrombophilias N Thyroid Disease Y Breast Cancer N Hypothyroidism Y Lung Disease N Developmental or Behavioral Disorders N Defects or Inherited Disease N Breast Problem N Difficulty Swallowing N Anesthesia Complications N Deep Vein Thrombosis N Meniere's disease N Hearing Loss N Head Injury/Concussion N Congenital Anomalies N Abnormal Pap Smear N Endometriosis N Bladder or Kidney Problems N High Cholesterol Y Nervous System Disorder N Liver Disease N Psychiatric/Mental Health Condition N Schizophrenia N Allergies/Hayfever N Parkinson's Disease N GI Problems N ADD/ADHD N Anemia N Colon Polyps N Heart Attack ([place]) N Diabetes N Ovarian Cancer N Bedwetting N Seizures/Epilepsy N Amnesia N Congestive Heart Failure (CHF) N Eczema N Dementia N Diverticulitis N Abuse/Domestic Violence N Cardiovascular Y Tourette Syndrome N Hypertension Y Pre-Eclampsia N Osteoporosis N Gynecological History Statement/Question Response Abnormal Pap N Flow Moderate Date of LMP 08/19/2003 Post Menopausal Bleeding N STIs/STDs N HPV Vaccine N Age at Menarche 12 Current Control Method Menopause Most Recent Mammogram Age at First Child 15 If Post Menopausal, Age at Menopause 52 Frequency of Cycle (Q days) 5 Sexually Active? Y Sexual Problems? N Hormone Replacement Therapy Y Obstetrics History GPAL:G 3 P 3 0 0 0 Type Value Full Term 3 Total 3 Immunizations Vaccine Type Date Status Note Provider Nam e and Address Organization Details Recorded Time Tdap 10/03/2016 completed Not Available [facility] 09/05/2019 02:39:16 Past Encounters Encounter ID Performer Location Encounter Start Date Encounter Closed Date Diagnosis/Indication Diagnosis SNOMED-CT Code Diagnosis ICD10 Code Diagnosis IMO Codes Diagnosis Note [id number] Monie Tinoco MD [facility] [address] [place] [address] 10/03/2016 09:20:14 10/04/2016 09:40:35 Elevated blood-pressure reading without diagnosis of hypertension 305002245 R03.0 Hypothyroidism 65678369 E03.9 Viral screening 55962443 4 Z11.59 Hyperlipid emia screening 965365770 Z13.220 Adult heal th examination 696480099 Z00.00 Active or passive immunization 671189647 Z23 [id number] Monie Tinoco MD [facility] [address] [place] [address] 02/11/2017 10:14:41 02/11/2017 14:20:16 Diet education 91454596 Z71.3 Exercises education, guidance, and counseling 343721342 Z71.89 Advance di rective discussed with patient 428511261 Z71.89 Hypothyroidism 80927123 E03.9 Hyperlipid emia screening 566078531 Z13.220 Adult heal th examination 698797419 Z00.00 Screening for malignant neoplasm of colon 844483628 Z12.11 [id number] Lazaro Kenyon [facility] [address] [place] [address] 03/12/2017 14:09:53 03/12/2017 16:50:30 Contact dermatitis 86472966 L25.9 Acute exac erbation of chronic obstructive pulmonary disease 237512874 J44.1 [id number] Lazaro Kenyon [address] [address] 08/15/2017 10:28:27 08/15/2017 10:52:56 Hypothyroidism 14066762 E03.9 Hyperlipidemia 89927180 E78.5 [id number] Lazaro Kenyon [address] [address] 12/09/2017 09:10:52 12/09/2017 12:21:02 Hyperlipidemia 53464621 E78.5 Hypothyroidism 56524772 E03.9 Elevated blood-pressure reading without diagnosis of hypertension 255024730 R03.0 Vitamin B1 2 deficiency (non anemic) 82613705 E53.8 Vitamin D deficiency 347 69519 E55.9 Viral screening 66675455 4 Z11.59 Pre-surger y evaluation 322948970 Z01.818 Bilateral cataracts 9572 2004 H26.9 Common cold 58235303 J00 Electrocar diogram abnormal 237222491 R94.31 Menopausal flushing 1984 80214 N95.1 [id number] Lazaro Kenyon [facility] [address] [place] [address] 02/11/2018 09:15:00 02/11/2018 14:22:41 Hypothyroidism 92856772 E03.9 Vitamin D deficiency 347 09056 E55.9 Medication monitoring 39 4677570 Z51.81 Diet education 46896967 Z71.3 Exercises education, guidance, and counseling 755595489 Z71.89 Adult heal th examination 820974142 Z00.01 [id number] Lazaro Kenyon [facility] [address] [place] [address] 02/28/2018 09:34:24 02/28/2018 11:33:48 Contact dermatitis 58032478 L25.9 Begin triamcinol one cream, hydroxyzin e 25 mg, prednisone 10 mg and inject solu medrol 125 mg. [id number] Lazaro Kenyon [facility] [address] [place] [address] 09/01/2018 10:10:59 09/01/2018 14:52:03 Screening for malignant neoplasm of colon 286631184 Z12.11 Hyperlipidemia 07380277 E78.5 Hypothyroidism 00782973 E03.9 [id number] Lazaro Kenyon [facility] [address] [place] [address] 05/05/2019 10:51:22 05/05/2019 14:08:27 History of multiple allergies 301374617 Z91.018 to foods [id number] Lazaro Kenyon [facility] [address] [place] [address] 08/07/2019 14:00:41 08/07/2019 14:29:09 Scalding pain on urination 05855133 R30.0 Cystocele 453566449 N81. 10 [id number] Lazaro Marieenithya [facility] [address] [place] [address] 10/26/2019 14:47:52 10/26/2019 15:54:42 Long-term drug therapy 600553031 Z79.899 Hyperlipidemia 40821942 E78.5 Fatigue 53442559 R53.83 History of multiple allergies 277432614 Z91.236 [id number] Lazaro Kenyon [facility] [address] [place] [address] 11/16/2019 12:39:11 11/16/2019 14:19:17 Superficial foreign body in upper arm 347659982 Z18.9 [id number] Lazaro Kenyon [facility] [address] [place] [address] 02/01/2020 10:50:31 02/01/2020 11:42:46 Hyperlipidemia 46011103 E78.5 Hypothyroidism 78629355 E03.9 [id number] Lazaro Kenyon [address] [address] 03/16/2020 15:14:04 03/16/2020 16:37:48 Contact dermatitis 57035454 L25.9 [id number] Lazaro Kenyon [facility] [address] [place] [address] 04/11/2020 14:55:00 04/12/2020 10:04:52 Contact dermatitis 90930470 L25.9 [id number] Lazaro Kenyon [facility] [address] [place] [address] 05/25/2020 15:08:53 05/25/2020 16:56:14 Allergic reaction 260488789 T78.40XD [id number] Monie Tinoco MD [facility] [address] [place] [address] 08/03/2020 10:07:11 08/03/2020 12:45:58 Hyperlipidemia 25500999 E78.5 Hypothyroidism 14047222 E03.9 Diet education 65163816 Z71.3 Exercises education, guidance, and counseling 365656693 Z71.82 Finding of body mass index 579341294 Z68.26 [id number] Monie Tinoco MD [facility] [address] [place] [address] 09/02/2020 11:06:32 09/02/2020 12:07:32 Hypothyroidism 28719514 E03.9 Elevated blood-pressure reading without diagnosis of hypertension 060886496 R03.0 Body mass index 25-29 - overweight 396401746 Z68.26 [id number] Monie Tinoco MD [facility] [address] [place] [address] 11/09/2020 14:33:46 11/09/2020 15:07:19 Essential hypertension 29108286 I10 [id number] Lazaro Sheldon [facility] [address] [place] [address] 04/25/2021 10:53:16 04/25/2021 11:58:25 Hypothyroidism 51400483 E03.9 Hyperlipidemia 31716891 E78.5 refuses statin Risk of ex posure to communicable disease 676387076 Z20.9 History of multiple allergies 318836403 Z91.018 Diet education 16740082 Z71.3 Exercises education, guidance, and counseling 128109474 Z71.82 Finding of body mass index 406344785 Z68.26 [id number] Lazaro Sheldon [facility] [address] [place] [address] 10/23/2021 09:19:27 10/23/2021 11:46:51 Hyperlipidemia 30331618 E78.5 refuses statin Long-term drug therapy 711880433 Z79.899 Hypothyroidism 43662912 E03.9 Diet education 93671871 Z71.3 Exercises education, guidance, and counseling 453069420 Z71.82 Finding of body mass index 521441285 Z68.26 [id number] Lazaro Sheldon [facility] [address] [place] [address] 03/12/2022 10:54:52 03/12/2022 11:45:37 Infection of skin and/or subcutaneous tissue 67534261 L08.9 Non-menopa usal hot flash 6996140430 21583 R23.2 Diet education 80818634 Z71.3 Exercises education, guidance, and counseling 483180799 Z71.82 Body mass index 25-29 - overweight 449387518 Z68.25 [id number] Tavon Sheldon, DO [facility] [address] [place] [address] 05/08/2022 09:51:08 05/08/2022 10:25:19 Long-term drug therapy 675606363 Z79.899 A1C 5.4-Normal Hyperlipidemia 91806860 E78.5 She focuses on diet and exercise. She doesn't wish to be on statin. Hypothyroidism 88681600 E03.9 Body mass index 25-29 - overweight 315632806 Z68.25 BMI 25.3 Counseled on importance of healthy diet and 20-30 minutes of exercise 3-5 times per week. Diet education 21131630 Z71.3 Exercises education, guidance, and counseling 268144150 Z71.89 Essential hypertension 20811695 I10 Elevated today; Pt reported home readings are normal. Patient agrees to monitor blood pressure at home and notify provider if remains >140/90. Non-menopa usal hot flash 5529571964 69207 R23.2 Script renewed. [id number] [employer]NEY [employer]EM[employer], [facility] [address] [place] [address] 08/20/2023 15:05:25 08/23/2023 16:07:10 History of influenza 523813992 Z87.09 Will continue the ivermectin . Essential hypertension 50352627 I10 Elevated today and recommende d to monitor. Acute bronchitis 2415682 2 J20.9 If symptoms not improving or worsening let provider know. Pt voiced understand ing. [id number] [employer]EM[employer], [facility] [address] [place] [address] 08/21/2023 12:29:56 08/23/2023 12:52:45 Pneumonia 502888940 J18.9 Her influenza, RSV and covid swab was negative.W ill treat for possible secondary infection; Nebulizer provided to patient from [facility] symptoms not improving or worsening let provider know. Persistent cough [id number] 02 R05.3 [id number] Delmer Villa, DO [facility] [address] [place] [address] 10/29/2023 11:02:03 10/30/2023 09:11:11 Muscle and tendon injury [id number] S46.815W Patient was lifting dumbbells when she felt a pain in the inner, upper left arm (bicep area) 6 days prior to xray. Patient reports constant dull ache, but has pain with lifting. Severe bruising present with edema. Patient states her pain is not unbearable , she rates it as a 3/10 and states she has gotten used to it. She denies needing anything to manage the pain. Patient was recommende d to ice the arm as needed. An xray was obtained and sent to radiology for review. Patient was provided a sling to help the arm and allow healing. Patient voiced understand ing and will be advised of results after review. Essential hypertension 52305083 I10 Patient has history of high blood pressure. At intake the reading was 148/81 and then 138/95. Patient is experienci ng pain and inflammati on in her upper left arm that may be attributin g to the increased blood pressure reading. Body mass index 25-29 - overweight 545337137 Z68.25 BMI 25 Counseled on importance of healthy diet and 20-30 minutes of exercise 3-5 times per week. [id number] KOURTNEY FOREMAN DO [facility] [place] [address] [place] [address] 01/29/2024 10:11:25 01/30/2024 10:22:06 Pneumonia [id number] J18.9 Chest x-ray obtained and sent to radiologis t to review;Cou rse of steroids and levaquin sent to pharmacy.I f not improving or worsening let provider know. [id number] KOURTNEY FOREMAN DO [facility] [place] [address] [place] [address] 02/06/2024 10:21:57 02/10/2024 08:43:24 Pulmonary emphysema 96288607 J43.9 She is starting to breath better; Recommend to continue breathing treatments PRN. When she is starting is feeling well; She is going to continue with natural remedies and if another flare up occurs she would like to see pulmonolog ist. Body mass index 25-29 - overweight 157608254 Z68.25 BMI 25.3 Diet education 78758646 Z71.3 Exercises education, guidance, and counseling 609298393 Z71.89 Allergic rhinitis 327737 04 J30.9 Recommende d to start taking zyrtec or claritin daily. Hyperlipidemia 23553141 E78.5 Hypothyroidism 26882412 E03.9 Diabetes m judsonitus screening 349344737 Z13.1 [id number] KOURTNEY FOREMAN [facility] [address] [place] [address] 04/15/2024 14:53:28 04/16/2024 16:36:36 Body mass index 25-29 - overweight 758609025 Z68.25 BMI 25.9 Diet education 27806891 Z71.3 Exercises education, guidance, and counseling 603351319 Z71.82 Exposure t o SARS-CoV-2 618889706 Z20.822 Viral uppe r respiratory tract infection 136311120 J06.9 Continue symptomati c care. If not improving or worsening let provider know and can send in antibotics . Patient voiced understand ing. [id number] KOURTNEY FOREMAN, [facility] [id number] [place] [address] 08/26/2024 09:26:59 08/27/2024 09:03:21 Body mass index 20-24 - normal 584274495 Z68.24 BMI 24.8 Diet education 36128291 Z71.3 Exercises education, guidance, and counseling 764591244 Z71.82 Acute bronchitis 4712308 2 J20.9 Pt declined covid and flu swab; Course of antibiotic s given and steroids. If symptoms not improving or worsening let provider know. Pt voiced understand ing. Parasitic disease 130482 07 B89 Pulmonary emphysema 8743 3001 J43.9 She is starting to breath better; Recommend to continue breathing treatments PRN. When she is starting is feeling well Essential hypertension 82452079 I10 Elevated today and recommende d to monitor. Hyperlipidemia 91247616 E78.5 Declines labs today. Continue healthy diet Hypothyroidism 47180658 E03.9 Declines labs today. Continue levothyrox ine [id number] Tavon Sheldon, DO [facility] [address] [place] [address] 11/18/2024 15:28:19 11/19/2024 14:13:08 Foreign body of foot 219976773 S99.822A Pt presents with a foreign body in her L foot. The was cleaned, anesthetic spray was applied (patient refused lidocaine injection) and small 3mm superficia l incision was made in attempt to see or remove the object but was not successful . Will refer to podiatry for further evaluation . Advised to observe for s/s of infection and RTC if symptoms occur. Pt voiced understand ing. Diet education 08242128 Z71.3 Exercises education, guidance, and counseling 574525348 Z71.82 Finding of body mass index 240833502 Z68.25 BMI is 25.6 [id number] KOURTNEY FOREMAN DO [facility] [address] [place] [address] 03/03/2025 13:51:56 03/04/2025 16:54:16 Essential hypertension 18404214 I10 Elevated today. Will monitor. Hypothyroidism 27954909 E03.9 Discussed with patient her last labs showed thyroid was normal while on the levothyrox ine. If she wants to come off her medication can discontinu e and recheck her thyroid in a few months as well. Patient voiced understand ing. Postmenopausal state 764 07342 Z78.0 [id number] Hormone re placement therapy 257813601 Z79.554 [id number] KOURTNEY FOREMAN [facility] [address] [place] [address] 03/08/2025 10:20:14 03/09/2025 07:54:42 Acute kidney injury 75013048 N17.9 [id number] Kidney finding 971468971 R39.9 7778250 [id number] Tavon Sheldon DO [facility] [address] [place] [address] 05/31/2025 09:14:03 05/31/2025 13:08:49 Dizziness 778530450 R42 246214 EKG performed, no ST elevation or ischemia identified . Hypertensive urgency 443 856962 I16.0 9703682 Clonidine 0.1 mg given x 1 in the office. Discussed hypertensi ve crisis and risk of stroke with patient and the need for emergency evaluation . Ambulance called and patient was transporte d out of clinic without incident. Health Concerns Section Related Observation LastModified by Organization Detai ls LastModified Time None Recorded Concern Status LastModified by Organization Details LastModified Time None Recorded Advance Directives Directive N: Payers Insurance Date Sequence Insurance Name Policy Number Policy Tilley Covered Member ID Tilley Member ID Guarantor Name 08/26/2024 2 [employer] Marina Cyndy [id number] Dorina Salas Cyndy 08/26/2024 1 [place] Dorina Marina Maria Eler [id number] Dorina Salas Spengler 08/26/2024 NGS [facility] - [place] - [place] A - [id number] (MEDICARE) Dorina Marina Maria Eler [id number] Dorina Salas Davidngler 08/26/2024 2 [employer] (MEDICARE SUPPLEMENT) Dorina M Cyndy [id number] Dorina Naylor 08/26/2024 1 [employer] - PRIME (MEDICARE REPLACEMENT/A DVANTAGE - HMO) [id number] Dorina Marina Maria Eler [id number] Dorina Hernandezngler 08/26/2024 1 [employer] [id number] Dorina Marina Maria Eler [id number] Dorina Marina Spengler 08/26/2024 1 [facility] (MEDICARE REPLACEMENT/A DVANTAGE - PPO) [id number] Dorina Sandersonler [id number] Dorina Hernandezngler 06/09/2025 1 [place] (MEDICARE REPLACEMENT HMO) [id number] Dorina Naylor [id number] Dorina Naylor Notes Date Note Type Note Provider Name and Address Organization Details Recorded Time 08/26/2024 text/html Patient complains of cough and congestion for about a week. She hasn't started her breathing treatments yet. She cares for her granddaughter a couple days a week and recently was exposed to the stomach bug as well. She does not have GI symptoms yet. She reports she was taking large amounts of garlic daily and started having lower back pain and dark urine. She stopped the garlic and now her symptoms resolved after drinking lots of water. She has history of a fall, tripped over a rug. She still has some tenderness on the left side of her face. She went to hospital at [facility] and stated she had a CT scan with no fractures. She has been thinking about doing an ivermectin parasite cleanse for 30 days. Latoya Gasca NP [address], [address], [facility] 08/26/2024 16:30:11 11/18/2024 text/html Pt presents in the clinic with complaint of something in her foot.Said there is something in her L heel on the side of her foot and he son took a needle and tried to get it out and couldn't get it and it had a small amount of pus.Pt states she was working on her deck when it happened.Reported she also dropped a Pyrex container on her floor so does not know if she could have a small shard of glass in her foot.States the foot is very sore and she put neosporin and peroxide and a band aid on it last night.Pt states her tetanus shot is up to date. [place] GUNTER,KYAW-P C, CORPORATE LEGAL SECRETARY-C, [facility] [address], [address], [facility] 11/19/2024 09:03:03 03/03/2025 text/html Patient is here for check up and to discuss labs. She has been taking estradiol 2 mg and levothyroxine 88 mcg. She states she has been on her thyroid medication for many years. She saw amiok stating she may not need the medicaton and wants to not take it anymore if she can avoid it. She recently doing a cleanse mebendazole and ivermectin . She would like labs drawn t3 reverse, tpo, vit d,estradiol,progest erone,testoterone,c rp Latoya Gasca NP [address], [address], [facility] 03/03/2025 16:06:45 05/31/2025 text/html Patient presentsas a walk-in for high blood pressure and dizziness.She reports she got upset yesterday after having a stressful situation with her granddaughter. Last night she became nauseous, dizzy and feeling bad. She vomited x 1 last night. Her blood pressure has also been very high, 195/85 when she took it at home. She feels generally unwell. She is shaky and weak. She denies any chest pain or pressure and denies any shortness of breath. [place] GUNTER,KYAW-P C, CORPORATE LEGAL SECRETARY-C, [facility] [address], [address], [facility] 05/31/2025 11:14:01 OBGyn Episode No OBEpisode recorded.
--- NOTE | 2025-06-14 01:20 | XRR_ITS ---
PROCEDURE INFORMATION: Exam: XR Chest Exam date and time: 06/14/2025 1:22 AM Age: 74 years old Clinical indication: Left-sided; Prior surgery; Surgery date: 3-7 days post-operative; Surgery type: Left breast biopsy 06/09/2025. Left lumpectomy; C/O increasing left breast pain since biopsy 06/09/2025. History of ductal carcinoma. TECHNIQUE: Imaging protocol: Radiologic exam of the chest. Views: 1 view. COMPARISON: CR XR chest 1V [id number] 07/15/2018 3:18 AM FINDINGS: Lungs: No acute consolidation or overt pulmonary edema. Chronic calcified granuloma again noted periphery of the right midlung. Pleural spaces: Unremarkable. No pleural effusion. No pneumothorax. Heart/Mediastinum: Unremarkable. No cardiomegaly. Bones/joints: Unremarkable. XR/XR chest 1V portable [id number] IMPRESSION: No acute findings.
--- NOTE | 2025-06-14 01:22 | W.ED.GENADLT ---
HPI - General Adult General: Chief complaint: General Medical Stated complaint: biopsy sat. sharp pain and swelling now Time Seen by Provider: 06/14/25 01:04 History of Present Illness: Patient is a 74-year-old female who underwent a breast biopsy on Saturday (4 days ago) with instructions to avoid lifting more than 10 pounds. She reports that today at approximately 5:00 PM, she began experiencing intermittent sharp, stabbing pains in the center of her nipple area. The pain radiates downward from the nipple. Upon further questioning, she recalls having similar pain a couple of times yesterday as well. The patient describes the biopsy site as black and blue with swelling. She also notes enlarged veins around her nipple. The pain is preventing her from sleeping. She denies fever or nipple discharge. The patient mentions that cancer was found on her biopsy and she is scheduled to meet with a surgeon this week to discuss treatment options. Related Data Home Medications ?Medication ?Instructions ?Recorded ?Confirmed lisinopril 10 mg tablet 10 mg PO DAILY 06/03/25 06/11/25 Previous Rx's ?Medication ?Instructions ?Recorded levothyroxine 88 mcg tablet 88 mcg PO DAILY 90 days #90 tabs 06/04/23 estradiol 1 mg tablet 1 mg PO DAILY hot flashes #90 tabs 04/21/25 lidocaine 5 % topical patch 1 patch topical DAILY #15 ea 06/14/25 Allergies Allergy/AdvReac Type Severity Reaction Status Date / Time ampicillin Allergy Intermediate rash Verified 06/14/25 01:00 Penicillins Allergy Intermediate rash Verified 06/14/25 01:00 doxycycline Allergy ALGY-Rash Verified 06/14/25 01:00 [facility] PFSH: Medical History (Updated 06/14/25 @ 02:02 by Tin Garcia DO) Invasive ductal carcinoma of left breast, stage 2 Lung mass Hyperlipidemia Encounter for monitoring postmenopausal estrogen replacement therapy Anxiety about health Hypertension Vertigo Hypothyroidism (acquired) Surgical History Hx of lumpectomy H/O total vaginal hysterectomy Social History Smoking and tobacco/nicotine status: never used tobacco/nicotine Alcohol intake: never Substance/Drug Use: never Physical Exam Const: COMMON NORMALS: no acute distress GENERAL APPEARANCE: cooperative; not ill appearing and not frail appearing HENMT: COMMON NORMALS: normocephalic, atraumatic and Normal external nose present HEAD & SCALP: normocephalic and atraumatic FACE & SINUS: normal facial exam and face symmetric NOSE: Normal external nose present Eye: COMMON NORMALS: Equal, round and reactive pupils present and EOMs intact bilaterally PUPIL: Yes Equal, round and reactive pupils present Neck/C-Spine: GENERAL: Yes trachea midline Chest: CHEST: Yes Symmetrical chest wall rise OTHER: Examination of the left wrist reveals some evolving ecchymosis laterally. There is no nipple discharge. Normal nipple and areolar shape and color. Tenderness at the 10 o'clock position that is areolar. This is away from site of bruising. There is no redness, no significant warmth. Resp: COMMON NORMALS: normal respiratory effort, No retractions, No use of accessory muscles and clear to auscultation bilaterally AUSCULTATION: clear to auscultation bilaterally Cardio: COMMON NORMALS: regular rate and regular rhythm RATE: regular rate RHYTHM: regular rhythm Extremity: COMMON NORMALS: no pedal edema Neuro: MILLER COMA SCALE: document GCS findings Miller coma scale eye opening: Spontaneous Miller coma scale verbal response: Orientated [place] coma scale motor response: Obey commands [place] coma scale total score: 15 SENSORY EXAM: Yes extremities (intact) Psych: COMMON NORMALS: speech normal SPEECH: Yes normal speech Course Vital Signs: Vital signs: Vital Signs Temperature 97.8 F 06/14/25 00:55 Pulse Rate 67 06/14/25 02:26 Respiratory Rate 14 06/14/25 00:55 Blood Pressure 150/125 06/14/25 02:26 Pulse Oximetry 96 06/14/25 02:26 Oxygen Delivery Me thod Room Air 06/14/25 00:55 [facility] - General Adult Medical Decision Making Chest x-ray is nonacute. Vitals are stable here. No evidence of infection/cellulitis to the breast. She does have some bruising, which is away from the site of tenderness. She is prescribed a lidocaine patch. We will continue this. She is given a dose of dexamethasone which should help with any swelling. To return for new or worsening symptoms. Stable for discharge. Lab Data Radiology Impressions Chest X-Ray 06/14/25 01:20 IMPRESSION: No acute findings. All radiology interpretation(s) finalized by discharge Discharge Plan Discharge Patient Disposition: Home Clinical Impression: Left breast mass Condition: Stable Prescriptions: New lidocaine 5 % adhesive patch,medicated 1 patch topical DAILY Qty: 15 0RF Rx Instructions: leave on most painful area for up to 12 hrs No Action lisinopril 10 mg tablet 10 mg PO DAILY levothyroxine 88 mcg tablet 88 mcg PO DAILY 90 Days Qty: 90 1RF estradiol 1 mg tablet 1 mg PO DAILY Qty: 90 1RF Discharge Orders: Discharge ED (Routine); Ordered 06/14/25 Ordered By: Tin Garcia Referrals: Leonard Ceballos MD [Primary Care Provider, Family Practice] - 1-3 days Patient Instructions: Opioid Safety, Pain Management, Patient Portal & Trice Instructions Activity Restrictions/Additional Instructions: Return for worsening pain despite treatment, worsening swelling, redness, fever, any other concerning symptoms. Follow-up with your doctor this coming week as scheduled. Print Language: Surinamese Coding Level of Care Code ED Building Maintenance Superintendent for Edelmira Abarca
[2025-06-14 01:57] VITALS: BP 159/95; PULSE 67; O2SAT 97
[2025-06-14 02:26] VITALS: BP 150/125; PULSE 67; O2SAT 96
== END 2025-06-14 02:08 | disposition home or self-care (01) ==
PROVIDERS: Emergency Provider Emergency Medicine; PCP Family Medicine
DX: N63.20 Unspecified lump in the left breast, unspecified quadrant (principal); E78.5 Hyperlipidemia, unspecified; I10 Essential (primary) hypertension
CPT/HCPCS: 71045; 99283; J8540; J9999